=== PATIENT | female | born 1935 | race Hispanic/Latino ===

== ENCOUNTER 2018-05-17 04:25 | Emergency (ER) | payer OTHER ==
[2018-05-17] MEDS ORDERED: METHYLPREDNISOLONE SOD SUCC 125MG/2ML VIAL ONE (04:42)
[2018-05-17] MEDS ORDERED: FAMOTIDINE/PF 20 MG/2 ML VIAL IV ONE (04:42)
[2018-05-17] MEDS ORDERED: DiphenhydrAMINE HCL 50 MG/ML VIAL ONE (04:42)
[2018-05-17 04:44] LABS: BASOPHILS % (AUTO) 0.3 % (0.0-5.0); EOSINOPHILS % (AUTO) 1.1 % (0.0-8.0); HEMATOCRIT 36.4 % (36-48); LYMPHOCYTES % (AUTO) 22.2 % (21.0-51.0); MEAN CORPUSCULAR HEMOGLOBIN 31.5 pg (27.0-33.0); MEAN CORPUSCULAR HGB CONC 34.8 g/dL (32.0-36.0); MEAN CORPUSCULAR VOLUME 90.6 fL (79-99); MONOCYTES % (AUTO) 8.2 % (3.0-13.0); NEUTROPHILS % (AUTO) 68.2 % (40.0-77.0); PLATELET COUNT (AUTO) 400 K/uL (130-400); RED BLOOD CELL COUNT(AUTO) 4.02 MIL/uL (4.00-5.50); RED CELL DISTRIBUTION WIDTH 12.8 % (11.0-15.5); WHITE BLOOD COUNT (AUTO) 9.6 K/uL (4.8-10.8)
[2018-05-17 04:58] LABS: ALBUMIN 4.5 g/dL (3.5-5.0); BILIRUBIN,TOTAL 0.4 mg/dL (0.2-1.0); CREATININE 1.3 mg/dL (0.5-1.5); TOTAL PROTEIN, SERUM 8.1 g/dL (6.0-8.3)
[2018-05-17] MEDS ORDERED: POTASSIUM BICARB/CIT AC 25 MEQ TABLET.EFF ONE (05:15)
[2018-05-22] MEDS ORDERED: OMEP20CA10 PO (03:12)
[2018-05-22] MEDS ORDERED: DIPH25TA51 PO (03:12)
[2018-05-22] MEDS ORDERED: FAMO20TA32 PO (03:12)
[2018-05-22] MEDS ORDERED: SIMV10TA6 PO (03:12)
[2018-05-22] MEDS ORDERED: CHLO25TA3 PO (03:14)
[2018-05-22] MEDS ORDERED: AEC81 PO (03:14)
[2018-05-22] MEDS ORDERED: VITAMIN B12 PO (03:16)
[2018-05-22] MEDS ORDERED: THIA100T75 PO (03:16)
[2018-05-22] MEDS ORDERED: DIPH30C TP (03:22)
[2018-05-22] MEDS ORDERED: BRIM5DRO2 OU (03:22)
[2018-05-22] MEDS ORDERED: BIMA12.5OS OU (03:22)
[2018-05-22] MEDS ORDERED: DORZ10DR19 OS (03:22)
== END 2018-05-17 05:46 | disposition home or self-care (01) ==
LOC: EDH 04:25
DX: L50.0 Allergic urticaria (principal); I10 Essential (primary) hypertension
CPT/HCPCS: 36415; 80053; 85025; 96365; 96375; 99283; J1200; J2930; J3490